=== PATIENT | female | born 1990 | race Caucasian/White ===

== ENCOUNTER 2018-12-12 10:53 | Emergency (ER) | payer OTHER ==
[~2018-12-12] VITALS: Ht 167.6 cm; Wt 45.4 kg
[~2018-12-12 10:53] MED LIST: Bactrim 400-801 EACH PO
[2018-12-12] MEDS ORDERED: Amoxicillin500 MG PO (11:38)
== END 2018-12-12 12:45 | disposition home or self-care (01) ==
LOC: ER 10:53
DX: K04.7 Periapical abscess without sinus (principal); F17.210 Nicotine dependence, cigarettes, uncomplicated
CPT/HCPCS: 41800; 99283-25

== ENCOUNTER 2019-05-27 01:35 | Emergency (ER) | payer OTHER ==
[~2019-05-27] VITALS: Ht 162.6 cm; Wt 52.2 kg
[~2019-05-27 01:35] MED LIST changes: +Amoxicillin500 MG PO
[2019-05-27] MEDS ORDERED: ALBU90OI INH (02:05)
[2019-05-27] MEDS ORDERED: ROBITUSSIN COU237 M1 PO (02:05)
== END 2019-05-27 03:09 | disposition home or self-care (01) ==
LOC: ER 01:35
DX: R05 Cough (principal); F17.210 Nicotine dependence, cigarettes, uncomplicated
CPT/HCPCS: 94644; 99283-25; J1100

== ENCOUNTER → 2020-05-09 | Outpatient (CLI) | payer OTHER ==
[~2020-05-09] MED LIST changes: +ALBU90OI INH; +ROBITUSSIN COU237 M1 PO
[2020-05-11 20:06] LABS: CHLAMYDIA BY NAA Negative (Negative); GONOCOCCUS BY NAA Negative (Negative); TRICH VAG BY NAA Negative (Negative)
== END ==
LOC: PLD 18:16 → LAB SHORT 18:16
PROVIDERS: Registered Nurse Community Health
DX: Z20.2 Contact with and (suspected) exposure to infections with a predominantly sexual mode of transmission (principal)
CPT/HCPCS: 87491; 87591; 87661

== ENCOUNTER 2020-09-13 11:26 | Emergency (ER) | payer OTHER ==
[~2020-09-13] VITALS: Ht 167.6 cm; Wt 52.2 kg
== END 2020-09-13 12:43 | disposition home or self-care (01) ==
LOC: ER 11:26
DX: S00.461A Insect bite (nonvenomous) of right ear, initial encounter (principal); F17.210 Nicotine dependence, cigarettes, uncomplicated; Z91.030 Bee allergy status; Z79.899 Other long term (current) drug therapy; W57.XXXA Bitten or stung by nonvenomous insect and other nonvenomous arthropods, initial encounter
CPT/HCPCS: 96374; 96375; 96376; 99282-25; A9270; J1100; J1200

== ENCOUNTER → 2020-10-23 | Outpatient (CLI) | payer OTHER | END | disposition home or self-care (01) | LOC: LAB SHORT 11:57 → LAB 11:57 | DX: N12 Tubulo-interstitial nephritis, not specified as acute or chronic (principal) | CPT/HCPCS: 87077; 87086; 87186 ==